=== PATIENT | female | born 1965 | race Caucasian/White ===

== ENCOUNTER 2016-11-20 13:13 | Observation (INO) | payer BC ==
[2016-11-20] MEDS ORDERED: NITROGLYCERIN 0.4MG SL TABLET #25 BTL SL PRN ×2 (13:24→16:26)
[2016-11-20] MEDS ORDERED: ASPIRIN 325 MG TABLET PO ONE (13:24)
--- NOTE | 2016-11-20 13:33 | Emergency Department Record ---
History of Present Illness - General Chief Complaint: Chest Pain Stated Complaint: CHEST PAIN Time Seen by Provider: 11/20/16 13:24 Source: Patient, Family Mode of Arrival: Wheelchair Limitations: No limitations - History of Present Illness Initial Comments: 51 yo female presents with chest pressure that started about 30 minutes ago while shopping at the store. She does not have any history of CAD or prior heart disease. She has a history of HTN. No recent illness. No shortness of breath. No prior history of cardiac testing. [facility]. Complaint: Chest pain Onset/Timin -: Minutes(s) Onset: During exertion, Other Pain Location: Left chest Pain Radiation: RUE LUE Severity scale (1-10): 3 Quality: Aching, Dull, Heaviness Consistency: Other Improves With: Nothing Worsens With: Nothing Treatments Prior to Arrival: None - Related Data Home Medications Medication Instructions Recorded Confirmed Last Taken Tumeric 1 tab PO DAILY 07/23/15 11/20/16 Unknown Allergies Allergy/AdvReac Type Severity Reaction Status Date / Time No Known Drug Allergies Allergy Verified 11/20/16 13:24 Travel Screening - Travel/Exposure Within Last 30 Days Have you traveled within the last 30 days?: No Review of Systems Constitutional: Denies: Chills, Fever, Malaise Eyes: Denies: Eye discharge ENT: Denies: Congestion, Throat pain Respiratory: Denies: Cough, Dyspnea, Hemoptysis, Stridor, Wheezes Cardiovascular: Reports: Chest pain. Denies: Palpitations, Syncope Endocrine: Denies: Fatigue Gastrointestinal: Denies: Abdominal pain, Diarrhea, Nausea, Vomiting Genitourinary: Denies: Dysuria Musculoskeletal: Denies: Arthralgia, Back pain, Joint swelling, Myalgia Skin: Denies: Bruising, Change in color, Rash Neurological: Denies: Confusion, Headache, Weakness Psychiatric: Denies: Anxiety Hematological/Lymphatic: Denies: Blood Clots, Easy bleeding, Easy bruising, Swollen glands Past Medical History - SOCIAL HISTORY Smoking Status: Former smoker Alcohol Use: None Drug Use: None - RESPIRATORY Hx Respiratory Disorders: No - CARDIOVASCULAR Hx Cardio Disorders: Yes Hx Hypertension: Yes - NEURO Hx Neuro Disorders: No - GI Hx GI Disorders: Yes Hx Reflux: Yes - Hx Genitourinary Disorders: No - ENDOCRINE Hx Endocrine Disorders: Yes Hx Thyroid Disease: Yes (benign tumor) - MUSCULOSKELETAL Hx Musculoskeletal Disorders: Yes Hx Arthritis: Yes - PSYCH Hx Psych Problems: No - HEMATOLOGY/ONCOLOGY Hx Hematology/Oncology Disorders: No Family Medical History Any Significant Family History?: Yes Family Hx Comment (NOT TO BE USED IN PLACE OF ITEMS BELOW): diabetes, heart disease, stroke, ca Hx Cancer: Grandparents *Cancer Comment: Maternal grandfather-colon ca Physical Exam - General General Appearance: Alert, Oriented x3, Cooperative, No acute distress Limitations: No limitations - Head Head exam: Normal inspection - Eye Eye exam: Normal appearance, PERRL. negative: Conjunctival injection, Periorbital swelling - ENT ENT exam: Normal exam Ear exam: Normal external inspection Nasal Exam: Normal inspection Mouth exam: Normal external inspection Teeth exam: Normal inspection Throat exam: Normal inspection - Neck Neck exam: Normal inspection, Full ROM. negative: Tenderness - Respiratory Respiratory exam: Normal lung sounds bilaterally. negative: Respiratory distress - Cardiovascular Cardiovascular Exam: Regular rate, Normal rhythm, Normal heart sounds Peripheral Pulses: 2+: Radial (R), Radial (L) - GI/Abdominal GI/Abdominal exam: Soft - Rectal Rectal exam: Deferred - exam: Deferred - Extremities Extremities exam: Normal inspection, Full ROM, Normal capillary refill. negative: Pedal edema, Tenderness - Back Back exam: Reports: Normal inspection, Full ROM. Denies: Muscle spasm, Rash noted, Tenderness - Neurological Neurological exam: Alert, Normal gait, Oriented X3 - Psychiatric Psychiatric exam: Normal affect, Normal mood - Skin Skin exam: Dry, Intact, Normal color, Warm Course - Reevaluation(s) Reevaluation #1: EKG#1 13:13 NSR rate 75, intervals normal, left axis, ST poor R wave progression to acute elevation or depression. No old. artifact noted in 2 leads EKG#2 13:24 NSR rate 68, intervals Qtc 477, left axis, ST poor r wave progression, no acute ST elevation or depression 11/20/16 13:30 Reevaluation #2: No acute changes on the CBC The patient remains very comfortable without pain. Waiting for labs. The CXR is negative 11/20/16 14:26 Reevaluation #3: The labs were reviewed No acute changes The troponin is negative I PRANAV Gallego The patient will be admitted OBS for chest pain with serial enzymes and a cardiology consultation 11/20/16 15:29 Medical Decision Making - Lab Data Result diagrams: 11/20/16 13:40 11/20/16 13:40 Disposition Disposition: Admit Clinical Impression: Chest pain Qualifiers: Chest pain type: unspecified Qualified Code(s): R07.9 - Chest pain, unspecified Disposition: Still a Patient at [facility] Decision to Admit: Admit from ER Decision to Admit Date: 11/20/16 Decision to Admit Time: 15:31 Condition: (1) Good Forms: Patient Portal Access Time of Disposition: 15:31
[2016-11-20 14:16] LABS: BASO % 0.4 % (0-6); EOS % 1.4 % (0-6); GRAN % 68.2 % (47-80); HEMATOCRIT 38.9 % (35.0-47.0); HEMOGLOBIN 13.2 gm/dl (11.6-16.0); LYMPH % 23.8 % (16-45); MEAN CELL VOLUME 87.8 fl (81-97); MEAN CORPUSCULAR HEMOGLOBIN 29.8 pg (27-33); MEAN CORPUSCULAR HGB CONC 33.9 g/dl (32-36); MEAN PLATELET VOLUME 10.6 fl (7.4-10.4); MONO % 6.2 % (0-9); PLATELET COUNT 242 K/uL (130-400); RED BLOOD COUNT 4.43 M/uL (3.80-5.40); RED CELL DISTRIBUTION WIDTH 13.7 % (11.5-14.5); WHITE BLOOD COUNT W/O DIFF 6.9 K/uL (4.2-12.2)
[2016-11-20 14:33] LABS: INR 1.01; PARTIAL THROMBOPLASTIN TIME 25.8 SECONDS (24.5-39.1); PROTHROMBIN TIME (PATIENT) 11.4 SECONDS (9.5-12.1)
[2016-11-20 14:48] LABS: CKMB < 1.0 ng/mL (0-4.3)
[2016-11-20] MEDS ORDERED: ACETAMINOPHEN 500 MG TABLET PO PRN (16:26)
--- NOTE | 2016-11-21 07:19 | RADIOLOGY REPORT ---
EXAM: AP CHEST HISTORY: DIFFICULTY IN BREATHING. TECHNIQUE: A single AP view of the chest was performed. FINDINGS: The heart size is normal. The lung leslie are clear. The osseous structures are normal. IMPRESSION: NEGATIVE CHEST EXAMINATION. JOB NUMBER: [id number] MTDD
[2016-11-21] MEDS ORDERED: Non-Formulary MISC (Meloxicam [Meloxicam] 15 MG) PO SCH (10:00)
[2016-11-21] MEDS ORDERED: LISINOPRIL 10 MG TABLET PO SCH (10:00)
[2016-11-21] MEDS ORDERED: ENOXAPARIN 40 MG/0.4 ML SYR SQ SCH (10:00)
[2016-11-21] MEDS ORDERED: FAMOTIDINE 40 MG PO SCH (10:00)
[2016-11-21] MEDS ORDERED: ASPIRIN 325 MG TAB ENTERIC-COATED PO SCH (10:00)
[2016-11-21] MEDS ORDERED: Non-Formulary MISC (Amlodipine Besylate [Norvasc] 10 MG) PO SCH (10:00)
--- NOTE | 2016-11-21 10:13 | History & Physical ---
History of Present Illness - Date of Service Date of Service for History & Physical: 11/21/16 - History of Present Illness Admitting Diagnosis: chest pain History of Present Illness: Zehra Fish is a 51 y/o woman with PMX of HTN, DM, previous smoker, RA admitted for chest pain r/o [place] Chest pain was of sudden onset while walking retrosternal, radiated to left shoulder and back, was not relieved by rest. She denies any known CAD or previous heart related disease other than HTN. Has never seen a bush regenerator. Of note she reports increase in bilat lower extremity swelling over the past 2 months with associated 1-2lb/week weight gain and an episode of shortness of breath 2 weeks ago. PMX: HTN, GERD, DM, arthritis, previous smoker 2 PPD x 10 years PSX: Partial removal thyroid benign tumor, knee surgery, bunion surgery, tubal ligation, hernia PCP: Dr Gallego (awaiting new patient appointment already scheduled) Travel Screening - Travel/Exposure Within Last 30 Days Have you traveled within the last 30 days?: No - Travel/Exposure Within Last Year Have you traveled outside the [place] in the last year?: No Location Detail:: sister/mom/friends i [place] - Additonal Travel Details Have you been exposed to anyone with a communicable illness?: No - Travel Symptoms Symptom Screening: None Review of Systems Constitutional: Denies: Chills, Fever, Malaise Eyes: Denies: Eye discharge ENT: Denies: Congestion, Throat pain Respiratory: Denies: Cough, Dyspnea, Hemoptysis, Stridor, Wheezes Cardiovascular: Reports: Chest pain. Denies: Palpitations, Syncope Endocrine: Denies: Fatigue Gastrointestinal: Denies: Abdominal pain, Diarrhea, Nausea, Vomiting Genitourinary: Denies: Dysuria Musculoskeletal: Denies: Arthralgia, Back pain, Joint swelling, Myalgia Skin: Denies: Bruising, Change in color, Rash Neurological: Denies: Confusion, Headache, Weakness Psychiatric: Denies: Anxiety Hematological/Lymphatic: Denies: Blood Clots, Easy bleeding, Easy bruising, Swollen glands Past Medical History - SOCIAL HISTORY Smoking Status: Former smoker Drug Use: None - RESPIRATORY Hx Respiratory Disorders: No - CARDIOVASCULAR Hx Cardio Disorders: Yes Hx Hypertension: Yes - NEURO Hx Neuro Disorders: No - GI Hx GI Disorders: Yes Hx Reflux: Yes - Hx Genitourinary Disorders: No - ENDOCRINE Hx Endocrine Disorders: Yes Hx Thyroid Disease: Yes (benign tumor) - MUSCULOSKELETAL Hx Musculoskeletal Disorders: Yes Hx Arthritis: Yes - PSYCH Hx Psych Problems: No - HEMATOLOGY/ONCOLOGY Hx Hematology/Oncology Disorders: No Family Medical History Any Significant Family History?: Yes Family Hx Comment (NOT TO BE USED IN PLACE OF ITEMS BELOW): diabetes, heart disease, stroke, ca Hx Cancer: Grandparents *Cancer Comment: Maternal grandfather-colon ca H&P Meds/Allergies - Allergies Allergies: Allergies Allergy/AdvReac Type Severity Reaction Status Date / Time No Known Drug Allergies Allergy Verified 11/20/16 13:24 - Home Medications Home Medications Medication Instructions Recorded Confirmed Last Taken Tumeric 1 tab PO DAILY 07/23/15 11/20/16 Unknown Previous Rx's Medication Instructions Recorded Hydrochlorothiazide [Hctz 25Mg] 25 mg PO DAILY #30 tablet 11/21/16 - Active Medications Active Medications: Current Medications Acetaminophen (Tylenol 500mg Tab) 1,000 mg PO Q6H PRN PRN Reason: PAIN/TEMP Last Admin: 11/20/16 18:32 Dose: 1,000 mg Amlodipine Besylate (Norvasc) 10 mg PO 0330 CHARLES Aspirin (Ecotrin (Ec)) 325 mg PO 0330 CHARLES Enoxaparin Sodium (Lovenox) 40 mg SQ DAILY CHARLES Last Admin: 11/21/16 09:54 Dose: 40 mg Famotidine (Pepcid) 40 mg PO 0330 CHARLES Lisinopril (Zestril) 10 mg PO 0330 CHARLES Meloxicam (Mobic) 15 mg PO 0330 CHARLES Nitroglycerin (Nitrostat 0.4mg) 0.4 mg SL Q5MIN PRN PRN Reason: CHEST PAIN Stop: 11/22/16 16:27 Physical Exam - Vital Signs Vital Signs: Vital Signs - Last 24 Hrs Temp Pulse Pulse Resp BP Pulse Ox 11/21/16 09:00 76 20 11/21/16 08:18 98.0 F 69 18 164/81 97 11/21/16 06:00 98.0 F 66 16 137/61 96 11/21/16 02:00 97.8 F 66 16 140/73 96 11/20/16 22:48 16 11/20/16 22:07 97.9 F 64 16 136/69 95 11/20/16 18:26 97.7 F 71 18 149/74 95 11/20/16 16:26 97.8 F 80 16 194/83 - General General Appearance: Alert, Oriented x3, Cooperative, No acute distress Limitations: No limitations - Head Head exam: Normal inspection - Eye Eye exam: Normal appearance, PERRL. negative: Conjunctival injection, Periorbital swelling - ENT ENT exam: Normal exam Ear exam: Normal external inspection Nasal Exam: Normal inspection Mouth exam: Normal external inspection Teeth exam: Normal inspection Throat exam: Normal inspection - Neck Neck exam: Normal inspection, Full ROM. negative: Tenderness - Respiratory Respiratory exam: Normal lung sounds bilaterally (diminished, but clear, RUL, RLL). negative: Respiratory distress - Cardiovascular Cardiovascular Exam: Regular rate, Normal rhythm, Normal heart sounds Peripheral Pulses: 2+: Radial (R), Radial (L), 3+: Dorsalis Pedis (R), Dorsalis Pedis (L) - GI/Abdominal GI/Abdominal exam: Soft - Rectal Rectal exam: Deferred - exam: Deferred - Extremities Extremities exam: Normal inspection, Full ROM, Normal capillary refill, Pedal edema (1-2+ pitting edema bilat). negative: Tenderness - Back Back exam: Reports: Normal inspection, Full ROM. Denies: Muscle spasm, Rash noted, Tenderness - Neurological Neurological exam: Alert, Normal gait, Oriented X3 - Psychiatric Psychiatric exam: Normal affect, Normal mood - Skin Skin exam: Dry, Intact, Normal color, Warm Results - Labs Result Diagrams: 11/20/16 13:40 11/20/16 13:40 Labs Last 24 Hours: Laboratory Results - last 24 hr 11/20/16 11/21/16 21:55 05:55 Troponin I < 0.012 < 0.012 VTE H&P Assessment - Risk for VTE Risk for VTE: Yes Risk Level: Moderate Risk Assessment Date: 11/21/16 Risk Assessment Time: 10:21 VTE Orders Placed or Will Be Placed: Yes Plan - Detailed Diagnosis and Plan (1) Chest pain Current Visit: Yes Status: Acute Qualifiers: Chest pain type: unspecified Qualified Code(s): R07.9 - Chest pain, unspecified Base Code: R07.9 - CHEST PAIN, UNSPECIFIED Comment: 11/21- admitted for chest pain rule out [place] - No known previous hx CAD/CHF - troponin x 3 normal, coag normal - CXR negative for acute process - Tele NSR - New onset over the last 2 months of weight gain/peripheral edema, 1 episode shortness of breath warranting cardiology consult today - TSH, BNP, lipid panel today (2) HTN (hypertension) Current Visit: Yes Status: Acute Base Code: I10 - ESSENTIAL (PRIMARY) HYPERTENSION Comment: 11/21- chronic hx HTN - continue Amlodipine 10mg QD, Zestril 10mg QD per home dosing - BP stable at this time (3) DVT prophylaxis Current Visit: Yes Status: Acute Base Code: [id number] - Comment: 11/21- Lovenox 40mg SQ QD during this hospital stay (4) Full code status Current Visit: Yes Status: Acute Base Code: Z78.9 - OTHER SPECIFIED HEALTH STATUS Comment: 11/21- will remain full code status during this hospitalization
[2016-11-21 11:35] LABS: LDL CHOLESTEROL/MEASURED 91.8 mg/dL (0-100); NTpro B-NATRIURETIC PEPTIDE 24.7 pg/mL (<125)
[2016-11-21 11:57] LABS: THYROID STIMULATING HORMONE 2.06 uIU/ml (0.465-4.68)
--- NOTE | 2016-11-21 15:55 | Discharge Summary ---
Providers Discharge Summary Date: 11/21/16 Date of admission: 11/20/16 16:17 Expected Date of Discharge: 11/21/16 Attending physician: GALINDO MARROQUIN Primary care physician: GALINDO MARROQUIN Physical Exam - Vital Signs Vital Signs: Vital Signs - Last 24 Hrs Temp Pulse Pulse Resp BP Pulse Ox 11/21/16 14:00 98.5 F 91 H 18 156/88 99 11/21/16 09:00 76 20 11/21/16 08:18 98.0 F 69 18 164/81 97 11/21/16 06:00 98.0 F 66 16 137/61 96 11/21/16 02:00 97.8 F 66 16 140/73 96 11/20/16 22:48 16 11/20/16 22:07 97.9 F 64 16 136/69 95 11/20/16 18:26 97.7 F 71 18 149/74 95 11/20/16 16:26 97.8 F 80 16 194/83 - General General Appearance: Alert, Oriented x3, Cooperative, No acute distress Limitations: No limitations - Head Head exam: Normal inspection - Eye Eye exam: Normal appearance, PERRL. negative: Conjunctival injection, Periorbital swelling - ENT ENT exam: Normal exam Ear exam: Normal external inspection Nasal Exam: Normal inspection Mouth exam: Normal external inspection Teeth exam: Normal inspection Throat exam: Normal inspection - Neck Neck exam: Normal inspection, Full ROM. negative: Tenderness - Respiratory Respiratory exam: Normal lung sounds bilaterally (diminished, but clear, RUL, RLL). negative: Respiratory distress - Cardiovascular Cardiovascular Exam: Regular rate, Normal rhythm, Normal heart sounds Peripheral Pulses: 2+: Radial (R), Radial (L), 3+: Dorsalis Pedis (R), Dorsalis Pedis (L) - GI/Abdominal GI/Abdominal exam: Soft - Rectal Rectal exam: Deferred - exam: Deferred - Extremities Extremities exam: Normal inspection, Full ROM, Normal capillary refill, Pedal edema (1-2+ pitting edema bilat). negative: Tenderness - Back Back exam: Reports: Normal inspection, Full ROM. Denies: Muscle spasm, Rash noted, Tenderness - Neurological Neurological exam: Alert, Normal gait, Oriented X3 - Psychiatric Psychiatric exam: Normal affect, Normal mood - Skin Skin exam: Dry, Intact, Normal color, Warm Hospitalization - Hospitalization Admission Diagnosis: chest pain - Problem List/Discharge Diagnosis (1) Chest pain Current Visit: Yes Status: Acute Discharge Diagnosis: Chest pain type: unspecified Qualified Code(s): R07.9 - Chest pain, unspecified Base Code: R07.9 - CHEST PAIN, UNSPECIFIED Comment: 11/21- admitted for chest pain rule out [place] - No known previous hx CAD/CHF - troponin x 3 normal, coag normal - CXR negative for acute process - Tele NSR - New onset over the last 2 months of weight gain/peripheral edema, 1 episode shortness of breath warranting cardiology consult today. Stress test negative - will d/c lisinopril in case of angioedema and replace with HCTZ - follow up outpatient as new patient in clinic - TSH, BNP, lipid panel today (2) HTN (hypertension) Current Visit: Yes Status: Acute Base Code: I10 - ESSENTIAL (PRIMARY) HYPERTENSION Comment: 11/21- chronic hx HTN - continue Amlodipine 10mg QD, d/c Zestril 10mg QD and replace with HCTZ 25mg QD - BP stable at this time but high - Hospitalization Course Disposition: Home, Self-Care Procedures: Cardiology Procedures 11/21/16 14:22 Stress EKG/STD Treadmill NOW Abnormal Labs: Abnormal Lab Results 11/21/16 Range/Units 05:55 HDL Cholesterol 33 L (40-60) mg/dL Condition at Discharge: (2) Stable Discharge Diagnosis: 1) Non-cardiac atypical chest pain Discharge Medications - Discharge Medications Prescriptions: Hydrochlorothiazide [Hctz 25Mg] 25 mg PO DAILY #30 tablet Home Medications: Ambulatory Orders Tumeric 1 tab PO DAILY 07/23/15 [Last Taken Unknown] Hydrochlorothiazide [Hctz 25Mg] 25 mg PO DAILY #30 tablet 11/21/16 [Last Taken Unknown] Discharge Plan - Discharge Instructions Activity at Discharge: Increase Activity as Tolerated Diet at Discharge: Regular Diet Instructions: Angina (DC), Chest Pain (DC), Noncardiac Chest Pain (DC) Additional Instructions: Follow up with your doctor as scheduled on 11/28. Recheck at the ED sooner if worse. Resume home meds. Diet and activity as tolerated.
[2016-11-22] MEDS ORDERED: FAMOTIDINE 20MG TABLET PO SCH (03:30)
[2016-11-22] MEDS ORDERED: AMLODIPINE BESYLATE 5MG TAB PO SCH (03:30)
[2016-11-22] MEDS ORDERED: MELOXICAM 7.5 MG TABLET PO SCH (03:30)
[2016-11-22] MEDS ORDERED: LISINOPRIL 10 MG TABLET PO SCH (03:30)
[2016-11-22] MEDS ORDERED: ASPIRIN 325 MG TAB ENTERIC-COATED PO SCH (03:30)
--- NOTE | 2016-11-22 07:56 | Medical Records Consult ---
DATE OF CONSULTATION: 11/21/16. Zehra Fish is a 51-year-old obese female with no previous cardiovascular disease. On 11/20/16 at 13:24 she was seen in the Emergency Room complaining of an episode approximately one-half hour ago while shopping with an episode of mid sternal chest discomfort. Her only risk factors for heart disease are obesity and hypertension. Her resting electrocardiogram demonstrated no significant ST or T-wave changes, it did show a poor progression of the R-waves across the anterior precordial leads which I think secondary to counter clockwise rotation. During her hospitalization her serum Troponin was normal as was serum CPK. After the initial admission she had no further chest discomfort. I saw her approximately twenty-four hours later resting comfortably in bed. We then went on to do a treadmill exercise test in which she reached more than 85% of predicted heart rate for her age group. She had no significant ST or T-wave changes. She had no significant arrhythmia and she did not have any chest discomfort. Based on the fact that her chest discomfort was atypical, no enzyme elevation, no change in her electrocardiogram and a stress test that met criteria for the fact that she had 85% of predicted heart making the test valid. I felt that she could be discharged and be followed up by her primary care physician for further cardiac work-up. Further review of systems: HEENT: She denied any HEENT complaints. Respiratory: She denies cough, dyspnea, hemoptysis, stridor, or rigor. Endocrine: She denies any history of diabetes or thyroid problem. GI: Negative. : Negative. PHYSICAL EXAMINATION: Reveals a well nourished, well hydrated female resting comfortably in bed. Her lungs were clear to auscultation. Heart sounds were clear. First and second sounds are normal. No S3. No S4. She had no murmurs. Abdomen was distended, no masses. She had no evidence of peripheral edema. IMPRESSION: NONCARDIAC CHEST PAIN BASED ON CARDIAC EVALUATION, CLINICAL SYMPTOMS, NO CHANGES ON RESTING EKG, NORMAL ENZYMES, AND NEGATIVE STRESS TEST. Silvano Gifford D.O. Date & Time JOB NUMBER: [id number] MTDD
== END 2016-11-21 16:18 | disposition home or self-care (01) ==
LOC: ER 13:13 → MEDSURG 16:17
PROVIDERS: ADMIT Family Medicine; ATTEND Family Medicine
DX: R07.89 Other chest pain (principal); I10 Essential (primary) hypertension; Z78.9 Other specified health status; E11.9 Type 2 diabetes mellitus without complications; R63.5 Abnormal weight gain
CPT/HCPCS: 99285 ×2; 82550; 85025; 85730; 85610; 82553; 84484; 80053; 84443; 80061; 83880; 71010; 93005 ×2; 93017; 93010 ×2; G0378 ×2; J3490; 99220; J1650

== ENCOUNTER 2017-08-17 07:03 | Inpatient (IN) | payer BC ==
[~2017-08-17 07:03] MED LIST: ACETAMINOPHEN 1,000 MG/100 ML BTL IV ONE; CEFAZOLIN 2 Gram 2 GM/50 ML BAG IVPB ONE; CELECOXIB 100 MG CAPSULE PO ONE; FAMOTIDINE 20MG TABLET PO ONE; MECLIZINE 25 MG TABLET PO ONE; METOCLOPRAMIDE 10 MG TABLET PO ONE
[2017-08-17] MEDS ORDERED: DIPHENHYDRAMINE HCL IV 50 MG/ML VIAL IVP ONE (09:00)
[2017-08-17] MEDS ORDERED: FENTANYL PF 100MCG/2ML VIAL IV ONE (09:00)
[2017-08-17] MEDS ORDERED: PROPOFOL 10 MG/ML VIAL IV ONE (09:00)
[2017-08-17] MEDS ORDERED: ONDANSETRON HCL IV 4 MG/2 ML VIAL IVP ONE (09:00)
[2017-08-17] MEDS ORDERED: LIDOCAINE 2% MDV (20MG/ML) 20ML VIAL IV ONE (09:00)
[2017-08-17] MEDS ORDERED: MIDAZOLAM HCL 2MG/2ML VIAL IV ONE (09:00)
[2017-08-17] MEDS ORDERED: HYDROMORPHONE HCL 2 MG/ML VIAL IV ONE (09:00)
[2017-08-17] MEDS ORDERED: AL HYDROX/MAG HYDROX 30ML UD PO PRN (11:15)
[2017-08-17] MEDS ORDERED: METOCLOPRAMIDE HCL 10 MG/2 ML VIAL IVP PRN (11:15)
[2017-08-17] MEDS ORDERED: OXYCODONE HCL 5 MG TABLET PO PRN ×2 (11:15)
[2017-08-17] MEDS ORDERED: SENNOSIDES/DOCUSATE SODIUM UD CAPSULE PO PRN (11:15)
[2017-08-17] MEDS ORDERED: ZOLPIDEM TARTRATE 5 MG TABLET PO PRN (11:15)
[2017-08-17] MEDS ORDERED: MAGNESIUM HYDROXIDE 30 ML UDC PO PRN (11:15)
[2017-08-17] MEDS ORDERED: DIPHENHYDRAMINE HCL 25 MG CAPSULE PO PRN (11:15)
[2017-08-17] MEDS ORDERED: TRAMADOL HCL 50 MG TABLET PO PRN ×2 (11:15)
[2017-08-17] MEDS ORDERED: HYDROMORPHONE HCL 1 MG/ML CPJ IVP PRN (11:15)
[2017-08-17] MEDS ORDERED: TRANEXAMIC ACID 1,000 MG in 0.9 % SODIUM CHLORIDE 100ML 100 ML IVPB ONE (12:00)
[2017-08-17] MEDS: RINGERS SOLUTION,LACTATED 1,000 ML IV SCH ×2 (12:29→15:10)
[2017-08-17] MEDS: ONDANSETRON HCL IV 4 MG/2 ML VIAL IVP PRN ×2 (13:32→17:10)
[2017-08-17] MEDS ORDERED: BUPIVACAINE 0.75% W/EPI MPF 30ML VIAL IVP ONE (14:13)
[2017-08-17] MEDS ORDERED: TRANEXAMIC ACID 1,000 MG/10 ML ML IV ONE (14:13)
[2017-08-17] MEDS: ACETAMINOPHEN 1,000 MG/100 ML BTL IV SCH ×2 (14:51→21:20)
--- NOTE | 2017-08-17 15:09 | Rehab Evaluation ---
Patient Information - Patient Information Diagnosis: OA Right Knee Ordered Treatment: PT Evaluate and Treat Status: Initial Evaluation Surgery: Yes (R TKA) Date of Surgery: 08/17/17 Past Medical/Surgical Hx: PAST MEDICAL/SURGICAL HISTORY Past Surgical History thyroid surgery patrial removal knee surgery bunion surgery tubal ligation hernia c scope PMH - Respiratory Hx Respiratory Disorders Yes Hx Bronchitis Yes Hx Pneumonia Yes Hx Sleep Apnea Yes Hx of CPAP Yes PMH - Cardiovascular Hx Cardiovascular Disorders Yes Hx Chest Pain Yes: hospitalized overnight 3-17 for chest pressure neg for heart problems Hx Edema Yes Hx Hypertension Yes: on meds fair control Exercise Tolerance Fair Comment: superficial blood clots right leg 3-5 years ago PMH - Neuro Hx Neurological Disorders Yes Hx Neuropathy Yes: feet Hx Weakness Yes: right leg PMH - GI Hx Gastrointestinal Disorders Yes Hx Gastroesophageal Reflux Yes: fair control Hx Weight Loss/Weight Gain Yes: 40 lb gain over last 2 years PMH - Hx Genitourinary Disorders No Hx Age of Menopause 48 PMH - Endocrine Hx Endocrine Disorders Yes Hx Diabetes Yes Hx Thyroid Disease Yes: benign tumor PMH - Musculoskeletal Hx Musculoskeletal Disorders Yes Hx Arthritis Yes PMH - Psych Hx Psychiatric Problems No PMH - Hematology/Oncology Hx Hematology/Oncology No Disorders Social History: Detail (Pt. had a R TKA today secondary to severe OA of the R knee. The pt. rates her pain at a 1/10 in the right knee, but rates her feeling of nausea as 4/10 right now. The pt. reports she is feeling very tired and dizzy. Pt. reports she lives in a ranch style 1-story home with 3 steps that enter the home. There is a railing on the L side when ascending. Pt. reports she has a standard tub and shower and has to step over a raised surface to get into the shower. The pt. reports she has no shower chair or raised toilet seat. Pt. reports she has a walker at home, she believes it is a 4-wheeled walker, but is unsure. The patient's bedroom is on the first floor and she does not use oxygen at home. The pt. is and her is available as necessary. Pt. ambulated to bathroom with CGA and void attempt was successful. Pt. was left supine with call light available, CPM attached, IPC, cryo LLE, and nursing was notified of pt.'s status.) Precautions: [place], Fall - Time With Patient Total Time Spent With Patient (Min): 60 Treatment Procedures: Detail (Pt completed inpatient initial evaluation.) Subjective Information - Subjective Information Per Patient (See social history.) Objective Data - Pain Pain Present: Yes Pain Intensity: 1 Pain Scale Used: Numeric (1 - 10) - Mental Status Patient Orientation: Oriented x3 - Visual Perception Appears within normal limits for therapeutic activities - ROM Within normal limits (BUE ROM was WNL. L LE was within functional limits. R LE ROM was not assessed at this time.) - Strength/Tone Within normal limits (Bilateral UEs were WNL. L LE was WNL for gross strength. R LE was not tested at this time.) - Coordination Appears within normal limits for therapeutic activities - Bed Mobility Needs Assist (The pt. required the use of the overhead trapeze to reposition herself in bed. The pt. required min assist with LE positioning when performing supine to seated and seated to supine transfers due to inability to perform SLR. ) - Transfers Independent (The pt. completed an independent supine to sit transfer and complained of increased dizziness and nausea. The pt. proceeded to vomit. Once the pt. felt less nauseous, the pt. completed a sit to stand transfer CGA x1 independently with a assistance of a front-wheeled walker. The pt. reported increased dizziness, but no complaints of nausea at that time. The pt. also stated the pain in her R knee increased to a 3-4/10 upon standing. The pt. completed an independent stand to sit transfer and complained of increased nausea and proceeded to vomit once again. When the pt.'s nausea lessened, she completed a sit to supine transfer with min assist x1 for her R LE.) - Balance Balance Sitting: Good Balance Standing: Good (The pt. stood for approximately 3 minutes exhibiting a slight side to side sway, but good standing balance overall.) - Sensation Intact - Gait Detail (Was not assessed at this time due to the pt. complaining of increased dizziness and nausea. Gait will be assessed at her next PT appointment.) - ADL's/IADL's Detail (Not assessed) - Special Tests No Therapy Assessment - Therapy Assessment Detail (Pt. exhibits increased nausea and dizziness secondary to anesthesia , R knee pain, gait impairments and balance deficits secondary to dizziness. Pt. will benefit from inpatient PT services to help decrease her impairments and meet her goals for PT.) Patient Education - Patient Education Teaching Topic: Community Resources, Equipment Use Response: Verbalize Understanding Teaching Method: Discussion Teaching Recipient: Patient, Family Barriers To Learning: Other (Pt. fell asleep multiple times throughout evaluation and was not very responsive to inquiries thoughout evaluation.) Problem List - Problem List Physical Therapy Problem List: Detail (1. LE pain 2. Complaints of dizziness 3. Complaints of nausea 4. Gait impairments 5. Balance deficits secondary to dizziness) Goals - Goals Physical Therapy Goals: 1. Pt. will verbalize understanding of precautions for her surgery. 2. Pt. will independently and safely ambulate 100 ft. CGA x1 with or without an assistive device. 3. Pt. will independently and safely ascend and descend 3 steps with or without an assistive device. 4. Pt. will be indpendent with and verbalize understanding of her HEP. Prognosis - Prognosis Good (Pt. is expected to transition to home environment considering she has support, a walker, and everything is located on the first floor.) Plan - Plan Physical Therapy Plan: Pt. will be seen 1-2x a day Monday-Monday for inpatient rehab until she has met her goals for PT. Plan of care will include gait training, balance training, transfer training and bed mobility, stair training, therapuetic exercise of strengthening and stretching exercises, and pt. education on assistive device use and strategies on how to ensure safety around the home environment.
[2017-08-17] MEDS ORDERED: RINGERS SOLUTION,LACTATED 1,000 ML IV PRN (15:29)
[2017-08-17] MEDS: CEFAZOLIN 2 Gram 2 GM/50 ML BAG IVPB SCH (17:11)
[2017-08-17] MEDS: FONDAPARINUX 2.5 MG/0.5 ML SYR SQ SCH (17:14)
[2017-08-18] MEDS: CEFAZOLIN 2 Gram 2 GM/50 ML BAG IVPB SCH ×2 (00:49→08:15)
[2017-08-18] MEDS: ACETAMINOPHEN 1,000 MG/100 ML BTL IV SCH (03:02)
[2017-08-18 06:35] LABS: HEMATOCRIT 37.1 % (35.0-47.0); HEMOGLOBIN 12.7 gm/dl (11.6-16.0); MEAN CELL VOLUME 87.7 fl (81-97); MEAN CORPUSCULAR HGB CONC 34.2 g/dl (32-36); MEAN PLATELET VOLUME 10.3 fl (7.4-10.4); PLATELET COUNT 205 K/uL (130-400); RED BLOOD COUNT 4.23 M/uL (3.80-5.40); RED CELL DISTRIBUTION WIDTH 13.4 % (11.5-14.5); WHITE BLOOD COUNT W/O DIFF 10.8 K/uL (4.2-12.2)
[2017-08-18] MEDS ORDERED: FAMOTIDINE 20MG TABLET PO SCH (07:00)
[2017-08-18] MEDS ORDERED: CELECOXIB 100 MG CAPSULE PO SCH (10:00)
[2017-08-18] MEDS ORDERED: AMLODIPINE BESYLATE 5MG TAB PO SCH (10:00)
[2017-08-18] MEDS ORDERED: HYDROCHLOROTHIAZIDE 25 MG TABLET PO SCH (10:00)
--- NOTE | 2017-08-18 10:49 | Rehab Evaluation ---
Patient Information - Patient Information Diagnosis: OA Right Knee Ordered Treatment: OT Evaluate and Treat Status: Initial Evaluation Surgery: Yes (R TKA) Date of Surgery: 08/17/17 Past Medical/Surgical Hx: PAST MEDICAL/SURGICAL HISTORY Past Surgical History thyroid surgery patrial removal knee surgery bunion surgery tubal ligation hernia c scope PMH - Respiratory Hx Respiratory Disorders Yes Hx Bronchitis Yes Hx Pneumonia Yes Hx Sleep Apnea Yes Hx of CPAP Yes PMH - Cardiovascular Hx Cardiovascular Disorders Yes Hx Chest Pain Yes: hospitalized overnight 3-17 for chest pressure neg for heart problems Hx Edema Yes Hx Hypertension Yes: on meds fair control Exercise Tolerance Fair Comment: superficial blood clots right leg 3-5 years ago PMH - Neuro Hx Neurological Disorders Yes Hx Neuropathy Yes: feet Hx Weakness Yes: right leg PMH - GI Hx Gastrointestinal Disorders Yes Hx Gastroesophageal Reflux Yes: fair control Hx Weight Loss/Weight Gain Yes: 40 lb gain over last 2 years PMH - Hx Genitourinary Disorders No Hx Age of Menopause 48 PMH - Endocrine Hx Endocrine Disorders Yes Hx Diabetes Yes Hx Thyroid Disease Yes: benign tumor PMH - Musculoskeletal Hx Musculoskeletal Disorders Yes Hx Arthritis Yes PMH - Psych Hx Psychiatric Problems No PMH - Hematology/Oncology Hx Hematology/Oncology No Disorders Premorbid Status: Detail (Ind. all mobility and I/ADL's.) Social History: Detail (Pt. reports she lives in a ranch style 1-story home with 3 steps (1 railing) that enter the home. Bathroom has a walk in shower with approx. 4" rise to step over, and a HH shower head. Pt. has a 4WW and single point cane. Pt.'s will be available before and after work to assist prn., and pt's mother in law is available during the day if needed.) Precautions: [place], Fall - Time With Patient Total Time Spent With Patient (Min): 30 Objective Data - Pain Pain Present: Yes (RLE) - Mental Status Patient Orientation: Oriented x3 - Visual Perception Appears within normal limits for therapeutic activities - ROM Within normal limits (BUE. Pt. hx of childhood BUE arm fx with no residual issues.) - Strength/Tone Within normal limits (BUE MMT 4+/5) - Coordination Appears within normal limits for therapeutic activities - Bed Mobility Needs Assist (Pt. required use of overhead trapeze bar to transition supine to sit EOB (which pt. does not have available at home). Educ. was provided in bed mobility techniques, including using a sheet/blanket around RLE to assist lifting.) - Transfers Independent (EOB<>2WW, sit<>stand, and standard toilet <>2WW.) - Balance Balance Sitting: Good Balance Standing: Fair - Sensation Intact (BUE lt touch) - ADL's/IADL's Detail (Educ. provided in available AE (edi programmer, sock aid, etc.), adaptive dressing techniques, and bed mobility techniques. Pt. was dissussing putting a grab/support bar in bathroom near shower, and may take sponge baths until feels safe enough/has enough energy to shower. Pt. demo. ability to dress UB and LB Ind. while seated (donned t-shirt, undergarments, and elastic waist band shorts) . Pt. ambulated from bed to bathroom, and transferred to toilet independently.) Therapy Assessment - Therapy Assessment Detail (Pt. demo. ability to safely dress and ambulate short household distance. Pt. has a good support system for assistance if needed at home. In- pt. OT services not recommended at this time. Pt. may benefit from an in-home OT eval to assist with bathroom set-up and educ. in shower t/f techniques and bed mobility to maximize safety and independence.) Patient Education - Patient Education Teaching Topic: Community Resources, Equipment Use Response: Return Demonstration, Verbalize Understanding Teaching Method: Discussion, Demonstration Teaching Recipient: Patient, Family ( present) Barriers To Learning: None Problem List - Problem List Physical Therapy Problem List: Detail (1. LE pain 2. Complaints of dizziness 3. Complaints of nausea 4. Gait impairments 5. Balance deficits secondary to dizziness) Goals - Goals Physical Therapy Goals: 1. Pt. will verbalize understanding of precautions for her surgery. 2. Pt. will independently and safely ambulate 100 ft. CGA x1 with or without an assistive device. 3. Pt. will independently and safely ascend and descend 3 steps with or without an assistive device. 4. Pt. will be indpendent with and verbalize understanding of her HEP. Prognosis - Prognosis Good Plan - Plan Physical Therapy Plan: Pt. will be seen 1-2x a day Monday-Monday for inpatient rehab until she has met her goals for PT. Plan of care will include gait training, balance training, transfer training and bed mobility, stair training, therapuetic exercise of strengthening and stretching exercises, and pt. education on assistive device use and strategies on how to ensure safety around the home environment. Occupational Therapy Plan: D/c pt. from in-pt. OT services. Pt. may benefit from in-home OT evaluation to assist transition home. Educ. provided for pt. to call rehab dept. if questions/concerns.
[2017-08-18] MEDS ORDERED: ACETAMINOPHEN 325 MG TAB PO PRN (11:15)
[2017-08-18] MEDS ORDERED: OXYCODONE/APAP 7.5MG/325MG TABLET PO PRN ×2 (11:15)
[2017-08-18] MEDS ORDERED: HYDROCODONE/APAP 7.5/325MG TABLET PO PRN ×2 (11:15)
--- NOTE | 2017-08-18 11:55 | Physical Therapy Tx Note ---
Physical Therapy Tx Note - Treatment Note Tolerated: Good (Patient feeling much better this am than yesterday and willing to get up and walk, try stairs while no IV going and able to do exercises in bed without too much pain. Able to ambulate up and down three steps times two: once with walker and once with cane.) Total Time Spent With Patient: 30 Physical Therapy Tx Note: Detail (Patient seen bedside and feeling pretty good right now. Supine to sit with very little assist after exercises in bed for heel slides, quad, glut and ham sets then SLR with some assist. Needed a few minutes when first sat up to calm stomach and head then sit to stand with verbal cues for pushing off from bed, ambulated with FWW about 50 feet to stairs , sat and rested in wheelchair then ambulated down three steps with FWW folded and rail with proper technique then pivoted around and ambulated back up three steps with same support, min assist. Rested in wheelchair again then practiced walking with four-wheeled walker in curiel about 10 feet then ambulated down three steps with rail and cane for support, pivoted around and ambulated back up three steps with same support and min assist. Ambulated back to room with four-wheeled walker as this is what she will use at home unless decide to get FWW. Left patient seated in chair with foot supported on tray table base, re- attached compressive stockings and cryocuff. Call light close.) Physical Therapy Problem List: Detail (1. LE pain 2. Complaints of dizziness 3. Complaints of nausea 4. Gait impairments 5. Balance deficits secondary to dizziness) Physical Therapy Goals: 1. Pt. will verbalize understanding of precautions for her surgery. 2. Pt. will independently and safely ambulate 100 ft. CGA x1 with or without an assistive device. 3. Pt. will independently and safely ascend and descend 3 steps with or without an assistive device. 4. Pt. will be indpendent with and verbalize understanding of her HEP. Prognosis: Good (Patient doing very well and could go home early this afternoon without another treatment as has passed all skills, but if she is still here this afternoon will work on more gait for endurance.) Physical Therapy Plan: Pt. will be seen 1-2x a day Monday-Monday for inpatient rehab until she has met her goals for PT. Plan of care will include gait training, balance training, transfer training and bed mobility, stair training, therapuetic exercise of strengthening and stretching exercises, and pt. education on assistive device use and strategies on how to ensure safety around the home environment.
--- NOTE | 2017-08-18 12:40 | Operative Note ---
DATE OF SURGERY: 08/17/2017 PREOPERATIVE DIAGNOSIS: Primary osteoarthritis of the right knee. POSTOPERATIVE DIAGNOSIS: Primary osteoarthritis of the right knee. OPERATIVE PROCEDURE: Right total knee arthroplasty. DESCRIPTION: This 51-year-old female was taken to the operating room and placed in the supine position on the operating room table. A spinal anesthetic was induced by Department of Anesthesia. The right lower extremity was then elevated. It was prepped with Hibiclens and draped in the usual sterile fashion. All scrubbed personnel wore personal isolation suits. The right lower extremity was exsanguinated and the tourniquet inflated to 300 mmHg. An anterior longitudinal midline incision was made followed by medial parapatellar arthrotomy incision. An intercondylar drill hole was made for the intramedullary alignment wil and a 10 mm cut was made on the distal femur to allow us to get contact with the bone on the lateral femoral condyle because of hypoplasia of the lateral femoral condyle. Subsequently, a 10 mm cut was made at 5 degree valgus and wafers of bone were removed. Sizing jig was affixed. Patient has a difficult knee to size because of the anteroposterior medial and lateral mismatch with the knee being significantly larger in the anteroposterior dimension than the medial lateral direction, and subsequently, we moved the pin sites of the guide 2 mm anteriorly to allow us to cut a 65 and 4-in-1 cutting block was pinned in 3 degrees of external rotation, and the appropriate cuts were made. Wafers of bone were removed. We then directed our attention to the proximal tibia and an extramedullary alignment guide was used to cut the proximal tibia referencing an 8 mm cut off of the medial tibial plateau because of full-thickness articular cartilage loss laterally. Subsequently, once the appropriate alignment had been assured, a 3 degree posterior slope cut was made and the wafer of bone was removed. Remnants of the menisci and osteophytes were removed from the posterior aspect of the joint. Tibia was sized to a size 75. Stem punch was subsequently used. Trial components were inserted and a 75 tibia, 65 femur, and a 13 mm bearing seemed to be the appropriate size. The patella was cut and restored to anatomic height with a 37 x 10 mm patella. All trial components were then removed and the wound copiously irrigated with pulsed lavage lactated Ringer's solution. Exparel was injected into the posterior, medial, and lateral corners of the joint. After insertion of all final components, the remainder was injected into the periosteum and joint capsule, the proximal tibia, and distal femur. All bony surfaces were dried and excess cement removed after the insertion of each component. Initially, the tibial base plate was cemented a size 75, a 13 mm anterior stabilized bearing inserted. This was followed by the insertion of the 65 cruciate-retaining femur, and a 37 x 10 mm patella was also cemented. Once the cement had hardened, the knee was again take through range of motion with excellent stability of the components being identified. A drain was placed through a separate stab incision, and the arthrotomy incision was closed with a #2 Vicryl. The subcutaneous tissue closed with O Vicryl, and the skin stapled. Sterile dressings with a polar care were applied and the patient taken to the recovery room in satisfactory condition. GROSS PATHOLOGY: Patient demonstrated very severe osteoarthritis of the lateral compartment with valgus angulation, full-thickness articular cartilage loss noted on the lateral femoral condyle and lateral tibial plateau. There was full-thickness articular cartilage loss also noted at the patella and hypoplasia of the lateral femoral condyle was also noted, which necessitated cutting an additional 1 mm off the distal femur. CC: MABLE
--- NOTE | 2017-08-18 15:59 | Physical Therapy Tx Note ---
Physical Therapy Tx Note - Treatment Note Tolerated: Good (Patient doing very well this afternoon and willing to walk to increase endurance. Doing better with ROM of knee as well. Ready to go home when doctor says she can go.) Total Time Spent With Patient: 30 Physical Therapy Tx Note: Detail (Patient seen in room and able to lift leg while therapist removed CPM and cryocuff, compressive stockings. Able to move supine to sit with assist of trapeze and independently then sit to stand with CGA, FWW and verbal cues to push off from bed. Ambulated into curiel about 100 feet with FWW and WBAT, SBA then back to room. Sat edge of bed and did knee exercises with some assist of therapist. Into bed independently with trapeze then re-placed CPM, cryocuff and compressive stockings. Gave patient outpatient schedule and made sure tray table and call light close.) Physical Therapy Problem List: Detail (1. LE pain 2. Complaints of dizziness 3. Complaints of nausea 4. Gait impairments 5. Balance deficits secondary to dizziness) Physical Therapy Goals: 1. Pt. will verbalize understanding of precautions for her surgery. 2. Pt. will independently and safely ambulate 100 ft. CGA x1 with or without an assistive device. 3. Pt. will independently and safely ascend and descend 3 steps with or without an assistive device. 4. Pt. will be indpendent with and verbalize understanding of her HEP. Prognosis: Good (Patient's endurance much better now and she is doing well. Should do very well at home with 's assist. Goals met and patient ready for discharge.) Physical Therapy Plan: Pt. will be seen 1-2x a day Monday-Monday for inpatient rehab until she has met her goals for PT. Plan of care will include gait training, balance training, transfer training and bed mobility, stair training, therapuetic exercise of strengthening and stretching exercises, and pt. education on assistive device use and strategies on how to ensure safety around the home environment.
[2017-08-18] MEDS: FONDAPARINUX 2.5 MG/0.5 ML SYR SQ SCH (16:39)
--- NOTE | 2017-08-21 12:50 | Discharge Summary ---
DATE OF ADMISSION: 08/17/2017 DATE OF DISCHARGE: 08/18/2017 ADMITTING DIAGNOSIS: Osteoarthritis of the right knee. DISCHARGE DIAGNOSIS: Osteoarthritis of the right knee. OPERATIVE PROCEDURE: Elective right total knee arthroplasty. DESCRIPTION: This 51-year-old female was admitted to the hospital for total knee arthroplasty. She tolerated the operative procedure well and did not show any evidence of DVT and cleared physical therapy the first postoperative day. She will be discharged the first postoperative day with instructions to wear her NEIL hose during the day and remove them at night. She will have outpatient physical therapy. She will take aspirin 325 mg daily for 2 weeks and she was given a prescription for [place] 7.5/325 one or two every 6 hours as necessary for pain. She was given 80. She was given routine wound care instructions and will follow up in the office in 2 weeks for staple removal. Should she have any problems prior to being seen, she was instructed to call my office. MABLE
== END 2017-08-18 17:00 | disposition home or self-care (01) | DRG 470 ==
LOC: MEDSURG 07:03
PROVIDERS: ADMIT Orthopaedic Surgery; ATTEND Orthopaedic Surgery
PROC: 0SRC069 Replacement of Right Knee Joint with Oxidized Zirconium on Polyethylene Synthetic Substitute, Cemented, Open Approach (ICD-10-PCS; principal; 2017-08-17 09:30)
DX: M17.11 Unilateral primary osteoarthritis, right knee (principal); I10 Essential (primary) hypertension
CPT/HCPCS: 85025; 97110; 97116; 97165; J1200; J2405; J2765; J3490; J7120